=== PATIENT | male | born 1990 | race Caucasian/White ===

== ENCOUNTER 2019-04-21 19:46 | Emergency (ER) | payer MEDICAID, MEDICARE ==
[2019-04-21 21:09] VITALS: BP 136/76; PULSE 66
--- NOTE | 2019-04-21 21:37 | EDM.PDOC ---
ED HPI GENERAL MEDICAL PROBLEM - General Chief Complaint: Chemical Exposure Stated Complaint: CHEMICAL REACTION ON FACE Time Seen by Provider: 04/21/19 21:39 Source of Information: Reports: Patient History Limitations: Reports: No Limitations - History of Present Illness INITIAL COMMENTS - FREE TEXT/NARRATIVE: pt was exposed to Asana xl insecticide. He got a small amount on his hand and then rubbed heis face. He is still feeing like he has irritation under the rt eye. He did not get any in his eye. Onset: Today, Other ( this happened around noon) Duration: Hour(s): Location: Reports: Face Associated Symptoms: Reports: No Other Symptoms, Other ( He has burning on the skin. ) - Related Data Allergies Allergy/AdvReac Type Severity Reaction Status Date / Time No Known Allergies Allergy Verified 10/07/16 16:36 Home Meds: Home Meds Albuterol Sulfate [Proair Hfa] 8.5 gm IH QID PRN 08/29/13 [History] Albuterol [Proventil Neb Soln] 3 ml INH Q4HR PRN 05/19/14 [History] Lipase/Protease/Amylase [Creon Dr 36,000 Units Capsule] 1 each PO DAILY [History] Mometasone Furoate [Nasonex [place]] 2 sprays TOP DAILY 05/19/14 [History] Omeprazole [Prilosec] 20 mg PO DAILY 05/19/14 [History] Azithromycin 1 tab PO ASDIRECTED 10/07/16 [History] Past Medical History Respiratory History: Reports: Cystic Fibrosis Musculoskeletal History: Reports: Fracture, Other (See Below) Other Musculoskeletal History: R shoulder pain - Past Surgical History HEENT Surgical History: Reports: Adenoidectomy, Polypectomy Social & Family History - Tobacco Use Smoking Status *Q: Never Smoker - Caffeine Use Caffeine Use: Reports: Coffee, Soda - Alcohol Use Days Per Week of Alcohol Use: 1 Number of Drinks Per Day: 6 Total Drinks Per Week: 6 - Recreational Drug Use Recreational Drug Use: No ED ROS GENERAL - Review of Systems Review Of Systems: See Below Constitutional: Reports: No Symptoms HEENT: Reports: Other ( He has slight burning under his rt eye. ) Respiratory: Reports: No Symptoms Cardiovascular: Reports: No Symptoms Endocrine: Reports: No Symptoms GI/Abdominal: Reports: No Symptoms ED EXAM, BURN/SMOKE INHALATION - Physical Exam Exam: See Below Text/Narrative:: pt has irritation under the rt eye. Maybe a little on the neck. he has a deep sunburn on the back of his neck. Exam Limited By: No Limitations General Appearance: Alert, Anxious, Mild Distress Ears (Abbreviated): Normal TMs Mouth/Throat: No Symptoms Reported Head: Other ( facial irriation, no blisters or marked irritation) Neck: No Symptoms Respiratory: No Respiratory Distress Course - Vital Signs Last Recorded V/S: Last Vital Signs Temp 36.1 C 04/21/19 21:08 Pulse 66 04/21/19 21:08 Resp 16 04/21/19 21:08 BP 136/76 04/21/19 21:08 Pulse Ox 98 04/21/19 21:08 Departure - Departure Time of Disposition: 21:35 Disposition: Home, Self-Care 01 Condition: Fair Clinical Impression: Chemical burn - Discharge Information Instructions: Chemical Burn, Adult Referrals: PCP,None [Primary Care Provider] - Forms: ED Department Discharge Care Plan Goals: cool pack to the area, kenalog cream >1 %
== END 2019-04-21 21:45 | disposition home or self-care (01) ==
LOC: JP.ED 19:46
DX: T60.2X1A Toxic effect of other insecticides, accidental (unintentional), initial encounter (principal); T20.40XA Corrosion of unspecified degree of head, face, and neck, unspecified site, initial encounter; Z79.899 Other long term (current) drug therapy
CPT/HCPCS: 99282; 99283